=== PATIENT | male | born 1970 | race Two or more races ===

== ENCOUNTER → 2019-01-27 07:29 | Outpatient (CLI) | payer OTHER ==
[~2019-01-27 07:29] MED LIST: CLARITIN10 MG PO; FLONASE16 GM NS; ZITHROMAX500 MG PO; ZYRTEC10 MG PO
== END | disposition home or self-care (01) ==
LOC: LAB 07:29
DX: E78.49 Other hyperlipidemia (principal); Z00.00 Encounter for general adult medical examination without abnormal findings

== ENCOUNTER 2019-01-27 08:06 | Outpatient (CLI) | payer OTHER | END 2019-01-27 08:20 | disposition home or self-care (01) | LOC: RAD 08:06 | DX: M25.512 Pain in left shoulder (principal) ==

== ENCOUNTER 2019-04-06 10:01 | Outpatient (CLI) | payer OTHER | END 2019-04-06 15:38 | disposition home or self-care (01) | LOC: MRI 10:01 | DX: M75.82 Other shoulder lesions, left shoulder (principal); M75.32 Calcific tendinitis of left shoulder | CPT/HCPCS: 73221 ==

== ENCOUNTER → 2019-06-22 17:24 | Outpatient (CLI) | payer OTHER | END | disposition home or self-care (01) | LOC: LAB 17:24 | DX: J11.1 Influenza due to unidentified influenza virus with other respiratory manifestations (principal); R05 Cough ==

== ENCOUNTER → 2021-06-04 11:57 | Outpatient (CLI) | payer OTHER | END | disposition home or self-care (01) | LOC: LAB 11:57 | PROVIDERS: ATTEND Pediatrics | DX: R05 Cough (principal); Z03.818 Encounter for observation for suspected exposure to other biological agents ruled out; R50.9 Fever, unspecified; R06.02 Shortness of breath ==